=== PATIENT | male | born 1965 | race Caucasian/White ===

== ENCOUNTER 2018-04-29 19:47 | Emergency (ER) | payer MEDICARE, OTHER, MEDICAID ==
[~2018-04-29] VITALS: Ht 165.1 cm; Wt 122.5 kg
[~2018-04-29 19:47] MED LIST: ALBUTEROL INHAL17 GM IH; FLONASE 0.05%50 MCG NS; PREDNISONE50 MG PO; PROMETHAZINE D480 M1 OR; ZPAK PO
[2018-04-29] MEDS ORDERED: NORCO 5-325 TA1 EACH PO (20:58)
[2018-04-29 21:25] VITALS: BP 173/88
== END 2018-04-29 21:25 | disposition home or self-care (01) ==
LOC: M.ERS 19:47
DX: M25.561 Pain in right knee (principal); M25.572 Pain in left ankle and joints of left foot; F17.200 Nicotine dependence, unspecified, uncomplicated; W00.0XXA Fall on same level due to ice and snow, initial encounter; Y93.89 Activity, other specified; Y92.89 Other specified places as the place of occurrence of the external cause; Y99.8 Other external cause status

== ENCOUNTER 2019-02-22 18:15 | Emergency (ER) | payer MEDICARE, MEDICAID ==
[~2019-02-22] VITALS: Ht 167.6 cm; Wt 136.1 kg
[~2019-02-22 18:15] MED LIST changes: +NORCO 5-325 TA1 EACH PO
[2019-02-22] MEDS ORDERED: KLONOPIN1 MG PO (20:32)
[2019-02-22] MEDS ORDERED: IBUPROFEN 800800 M1 PO (20:32)
[2019-02-22] MEDS ORDERED: MEDROLDOSEPACK PO (20:32)
[2019-02-22 20:58] VITALS: BP 167/102
== END 2019-02-22 21:00 | disposition left against medical advice (07) ==
LOC: M.ERS 18:15
DX: M75.42 Impingement syndrome of left shoulder (principal); F41.9 Anxiety disorder, unspecified; R03.0 Elevated blood-pressure reading, without diagnosis of hypertension; R20.0 Anesthesia of skin; M79.89 Other specified soft tissue disorders; F31.9 Bipolar disorder, unspecified; F17.210 Nicotine dependence, cigarettes, uncomplicated

== ENCOUNTER → 2019-04-18 | Outpatient (CLI) | payer MEDICARE, MEDICAID ==
[~2019-04-18] MED LIST changes: +IBUPROFEN 800800 M1 PO; +KLONOPIN1 MG PO; +MEDROLDOSEPACK PO
== END ==
LOC: M.RAD 20:55
DX: M47.812 Spondylosis without myelopathy or radiculopathy, cervical region (principal); M25.78 Osteophyte, vertebrae; M54.06 Panniculitis affecting regions of neck and back, lumbar region

== ENCOUNTER → 2019-04-26 | Outpatient (CLI) | payer MEDICARE, MEDICAID | LOC: M.MRI 16:28 | DX: M50.11 Cervical disc disorder with radiculopathy, high cervical region (principal); M48.02 Spinal stenosis, cervical region ==